=== PATIENT | male | born 1970 | race Caucasian/White ===

== ENCOUNTER 2017-03-19 15:22 | Emergency (ER) | payer OTHER ==
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
[2017-03-19 16:37] VITALS: BP 150/99; PULSE 87; RESP 18; TEMP 97.9; O2SAT 95
== END 2017-03-19 16:37 | disposition home or self-care (01) ==
DX: S42.122A Displaced fracture of acromial process, left shoulder, initial encounter for closed fracture (principal); F17.200 Nicotine dependence, unspecified, uncomplicated; V18.0XXA Pedal cycle driver injured in noncollision transport accident in nontraffic accident, initial encounter; Y92.410 Unspecified street and highway as the place of occurrence of the external cause; Y99.8 Other external cause status; Y93.55 Activity, bike riding